=== PATIENT | female | born 1985 | race Caucasian/White ===

== ENCOUNTER 2020-12-26 07:16 | Emergency (ER) | payer OTHER ==
[2020-12-26 08:16] LABS: HEMOGLOBIN 14.1 gm/dl (12.3-15.3); RED BLOOD COUNT 4.45 M/UL (4.00-5.10); WHITE BLOOD COUNT 6.7 K/UL (4.5-11.0)
[2020-12-26 08:48] LABS: BUN/CREATININE RATIO 20 (0-10)
[2020-12-26] MEDS ORDERED: LISINOPRIL-HCT1 EACH PO (10:42)
[2020-12-26] MEDS ORDERED: OMEPRAZOLE40 MG PO (10:42)
== END 2020-12-26 11:15 | disposition home or self-care (01) ==
LOC: ER1 07:16
PROVIDERS: Family Medicine
DX: R07.89 Other chest pain (principal); R10.13 Epigastric pain; M25.562 Pain in left knee; I25.10 Atherosclerotic heart disease of native coronary artery without angina pectoris; F17.200 Nicotine dependence, unspecified, uncomplicated
CPT/HCPCS: 71045; 73564; 80053; 82550; 82553; 83690; 83874; 84484; 85025; 93005; 96374; 99285